=== PATIENT | male | born 1965 | race Caucasian/White ===

== ENCOUNTER → 2017-08-13 | Outpatient (CLI) | payer OTHER ==
[~2017-08-13] MED LIST: CIPRO 500MG TA500 MG PO; FLOMAX 0.4MG C0.4 MG PO; MEDROL 4MG. DOSE4 MG PO; NAPROSYN500 M1 PO; NOMEDS XX; NORCO 325 MG-51 TAB PO; ROBAXIN-750750 MG PO
[2017-08-13 13:09] LABS: HEMOGLOBIN 16.4 g/dL (14.1-18.0); LYMPH # 1.8 K/mm3 (0.7-4.5); LYMPH % 30.1 % (10-50)
[2017-08-13 14:54] LABS: BUN 10 mg/dL (7-18); GFR (ESTIMATED) 89 ML/MIN (>60)
[2017-08-14 07:38] LABS: HBsAg Screen Negative (Negative); Hep A Ab, IgM Negative (Negative); Hep B Core Ab, IgM Negative (Negative); Hep C Virus Ab 0.1 (0.0-0.9)
== END ==
LOC: LAB 12:07
PROVIDERS: Emergency Medicine
DX: E78.5 Hyperlipidemia, unspecified (principal); R35.0 Frequency of micturition